=== PATIENT | female | born 1940 | race Two or more races ===

== ENCOUNTER → 2016-05-28 | Day surgery (SDC) | payer MEDICARE, OTHER ==
[~2016-05-28] MED LIST: ASPIRIN81 MG PO; DONEPEZIL HCL10 MG PO; GLUCOPHAGE500 M1 PO; MOBIC PO; MULTIVITAMINS1 EAC2 PO; OLANZAPINE5 MG PO
--- NOTE | ~2016-05-28 | OR ---
Unit #: [id number] #: [id number] Patient: SAVANNAH NIEVES [id number] [address] [place], [place] [address] [id number] O MR#: [id number] NAME: SAVANNAH NIEVES ROOM: Date of Procedure: 05/28/2016 Admission Date: 05/28/2016 Surgeon: Olman Rojas M.D. : 1940 Attending Physician: Olman Rojas M.D. Primary Care Physician: Faustino Conway M.D. PROCEDURE OPERATIVE NOTE REVISED REPORT PREOPERATIVE DIAGNOSIS Screening colonoscopy. POSTOPERATIVE DIAGNOSIS Internal hemorrhoids. PROCEDURE PERFORMED Colonoscopy. ANESTHESIA Monitored anesthesia care. PROCEDURE The patient has had a normal colonoscopy. PROCEDURE PERFORMED Colonoscopy. ENDOSCOPIST Olman Rojas M.D. DESCRIPTION OF PROCEDURE After adequate explanation of the risks, benefits and alternatives of the procedure, an informed consent was obtained from the patient. The patient was brought to the Endoscopy Suite. Intravenous sedation was administered. The patient was placed in the left lateral position. The colonoscope was introduced into the rectum and advanced to the cecum without difficulty. Once in the cecum, the anatomic landmarks were identified very well. The ileocecal valve was examined. The appendiceal orifice was examined. The scope was slowly withdrawn with the findings as noted in the next section. Adequate mucosal visualization of the colonic mucosa was done upon slow withdrawal. The scope was slowly withdrawn into the rectum and a retroflexed view was also obtained. The scope was withdrawn. The patient tolerated the procedure very well. FINDINGS CECUM: Normal. ILEOCECAL VALVE: Normal APPENDICEAL VALVE: Normal. ASCENDING COLON: Normal. TRANSVERSE COLON: Normal. DESCENDING COLON: Normal. SIGMOID COLON: Normal. Unit #: [id number] #: [id number] Patient: SAVANNAH NIEVES RECTUM: Nonbleeding internal hemorrhoids ASSESSMENT AND PLAN The patient is a 75-year-old female, who presented for screening colonoscopy. Noted to have evidence of internal hemorrhoids. No polyps or neoplastic lesions noted. The patient was started on a high fiber diet and followed up in the office as needed. TEMPLATE ADDED Dictated by... Olman Rojas M.D. DULCE/janell TD: 05/29/2016 07:48 JOB #: [id number] PROCEDURE OPERATIVE NOTE Page 1 of 1 X Olman Rojas MD PROCEDURE OPERATIVE NOTE
== END | disposition home or self-care (01) ==
LOC: COPS 12:00
PROVIDERS: Internal Medicine Gastroenterology
PROC: 0DJD8ZZ Inspection of Lower Intestinal Tract, Via Natural or Artificial Opening Endoscopic (ICD-10-PCS; principal; 2016-05-28 14:30)
DX: Z12.11 Encounter for screening for malignant neoplasm of colon (principal); K64.8 Other hemorrhoids; E11.9 Type 2 diabetes mellitus without complications; Z79.84 Long term (current) use of oral hypoglycemic drugs; F32.9 Major depressive disorder, single episode, unspecified; Z79.899 Other long term (current) drug therapy
CPT/HCPCS: 82947